=== PATIENT | female | born 1985 | race Caucasian/White ===

== ENCOUNTER 2019-04-03 10:40 | Outpatient (CLI) | payer BC ==
[2019-04-03 11:31] LABS: APPEARANCE,URINE SLIGHTLY-CLOUDY; BILIRUBIN,URINE NEGATIVE (NEGATIVE); COLOR,URINE YELLOW; GLUCOSE, URINE NEGATIVE (NEGATIVE); KETONES,URINE NEGATIVE (NEGATIVE); LEUKOCYTE ESTERASE,URINE NEGATIVE (NEGATIVE); NITRITE,URINE NEGATIVE (NEGATIVE); PROTEIN,URINE NEGATIVE (NEGATIVE); URINE SPECIFIC GRAVITY 1.008; UROBILINOGEN,URINE NEGATIVE mg/dL (<2.0)
[2019-04-03 11:43] LABS: URINE AMPHETAMINES SCREEN NEGATIVE; URINE BARBITURATES SCREEN NEGATIVE; URINE BENZODIAZEPINES SCREEN NEGATIVE; URINE COCAINE SCREEN NEGATIVE; URINE MARIJUANA (THC) SCREEN NEGATIVE; URINE METHADONE SCREEN NEGATIVE; URINE PHENCYCLIDINE SCREEN NEGATIVE
[2019-04-03 11:46] LABS: ABSOLUTE EOSINOPHILS # (AUTO) 0.1 10^3/uL (0.0-0.6); ABSOLUTE LYMPHOCYTES (AUTO) 1.8 10^3/uL (0.5-4.7); ABSOLUTE MONOCYTES (AUTO) 0.8 10^3/uL (0.1-1.4); ABSOLUTE NEUT (AUTO) 8.5 10^3/uL (1.7-8.2); BASOPHILS % (AUTO) 0.2 % (0-2); EOSINOPHILS % (AUTO) 0.6 % (0-6); HEMATOCRIT 39.3 % (36.0-47.0); HEMOGLOBIN 13.4 g/dL (12.0-15.5); LYMPHOCYTES % (AUTO) 16.3 % (13-45); MEAN CORPUSCULAR HEMOGLOBIN 30.8 pg (27.0-33.4); MEAN CORPUSCULAR HGB CONC 34.2 g/dL (32.0-36.0); MEAN CORPUSCULAR VOLUME 90 fl (80-97); MONOCYTES % (AUTO) 7.3 % (3-13); PLATELET COUNT 149 10^3/uL (150-450); RED BLOOD COUNT 4.35 10^6/uL (3.72-5.28); RED CELL DISTRIBUTION WIDTH 13.4 % (11.5-14.0); SEGMENTED NEUTROPHILS % (AUTO) 75.6 % (42-78); TOTAL CELLS COUNTED % (AUTO) 100 %; WHITE BLOOD COUNT 11.2 10^3/uL (4.0-10.5)
[2019-04-03 11:47] LABS: UR PRO/CREAT RATIO RESULT 0.4 mg/mg (0.0-0.2); URINE CREATININE 49.1 mg/dL (16-327)
[2019-04-03 12:09] LABS: ALBUMIN 3.8 g/dL (3.5-5.0); ALKALINE PHOSPHATASE 160 U/L (38-126); ANION GAP 13 (5-19); ASPARTATE AMINO TRANSFERASE 28 U/L (14-36); BILIRUBIN,DIRECT 0.2 mg/dL (0.0-0.4); BILIRUBIN,TOTAL 0.5 mg/dL (0.2-1.3); BLOOD UREA NITROGEN 6 mg/dL (7-20); CALCIUM 9.2 mg/dL (8.4-10.2); CARBON DIOXIDE 16 mmol/L (22-30); CHLORIDE 107 mmol/L (98-107); GLUCOSE 78 mg/dL (75-110); POTASSIUM 3.7 mmol/L (3.6-5.0); TOTAL PROTEIN 6.9 g/dL (6.3-8.2); URIC ACID 3.9 mg/dL (2.5-6.2)
--- NOTE | 2019-04-03 17:33 | Non Stress Test Report ---
Non Stress Test Datetime Report Generated by CPN: 04/03/2019 17:33 DEMOGRAPHIC EGA NST: 38.1 MONITORING Monitor Explained: Monitor Explained; Test Explained; Patient Verbalized Understanding Time on Monitor: 04/03/2019 10:53 Time off Monitor: 04/03/2019 12:26 NST Duration: 93 NST INTERVENTIONS NST Interventions: PO Hydration Physician Notified NST: J Lira CNM BABY A: [id number] BABY A Movement : Present Contraction Frequency : irritability FHR Baseline : 135 Accelerations : 15X15 Decelerations : None Variability : Moderate 6-25bpm NST Review: Meets Criteria for Reactive NST NST Results: Reactive NST REPORT Report Trigger: Send Report
== END 2019-04-03 12:37 | disposition home or self-care (01) ==
LOC: LC 10:40
PROVIDERS: ATTEND Obstetrics & Gynecology
PROC: 4A1HXCZ Monitoring of Products of Conception, Cardiac Rate, External Approach (ICD-10-PCS; principal; 2019-04-03)
DX: O13.3 Gestational [pregnancy-induced] hypertension without significant proteinuria, third trimester (principal); Z3A.38 38 weeks gestation of pregnancy
CPT/HCPCS: 36415; 59025; 80053; 80307; 81001; 82570; 83615; 84156; 84550; 85025

== ENCOUNTER 2019-04-03 18:05 | Inpatient (IN) | payer BC ==
[2019-04-03] MEDS ORDERED: OXYTOCIN/NORMAL SALINE 20 UNIT/1,000 ML RTUINJ IV PRN (18:16)
[2019-04-03] MEDS ORDERED: RINGERS SOLUTION,LACTATED 1,000 ML IV PRN ×2 (18:16→19:00)
[2019-04-03] MEDS ORDERED: RINGERS SOLUTION,LACTATED 300 ML IV ONE (18:16)
[2019-04-03 18:42] LABS: ABSOLUTE BASOPHILS # (AUTO) 0.1 10^3/uL (0.0-0.2); ABSOLUTE LYMPHOCYTES (AUTO) 2.3 10^3/uL (0.5-4.7); ABSOLUTE MONOCYTES (AUTO) 0.9 10^3/uL (0.1-1.4); ABSOLUTE NEUT (AUTO) 9.8 10^3/uL (1.7-8.2); BASOPHILS % (AUTO) 0.4 % (0-2); EOSINOPHILS % (AUTO) 0.4 % (0-6); HEMATOCRIT 38.4 % (36.0-47.0); HEMOGLOBIN 13.4 g/dL (12.0-15.5); LYMPHOCYTES % (AUTO) 17.4 % (13-45); MEAN CORPUSCULAR HEMOGLOBIN 31.1 pg (27.0-33.4); MEAN CORPUSCULAR HGB CONC 34.9 g/dL (32.0-36.0); MEAN CORPUSCULAR VOLUME 89 fl (80-97); MONOCYTES % (AUTO) 6.9 % (3-13); PLATELET COUNT 165 10^3/uL (150-450); RED BLOOD COUNT 4.31 10^6/uL (3.72-5.28); RED CELL DISTRIBUTION WIDTH 13.4 % (11.5-14.0); SEGMENTED NEUTROPHILS % (AUTO) 74.9 % (42-78); TOTAL CELLS COUNTED % (AUTO) 100 %
[2019-04-03] MEDS ORDERED: DINOPROSTONE 10 MG VAGINAL INSERT.SR ONE (18:55)
[2019-04-03] MEDS ORDERED: DINOPROSTONE 10 MG VAGINAL INSERT.SR PV PRN (19:00)
[2019-04-03] MEDS ORDERED: RINGERS SOLUTION,LACTATED 1,000 ML IV ONE (19:00)
[2019-04-03 19:07] LABS: APPEARANCE,URINE SLIGHTLY-CLOUDY; BILIRUBIN,URINE NEGATIVE (NEGATIVE); COLOR,URINE YELLOW; GLUCOSE, URINE NEGATIVE (NEGATIVE); KETONES,URINE 20 mg/dL (NEGATIVE); LEUKOCYTE ESTERASE,URINE NEGATIVE (NEGATIVE); NITRITE,URINE NEGATIVE (NEGATIVE); PROTEIN,URINE 30 mg/dL (NEGATIVE); UROBILINOGEN,URINE NEGATIVE mg/dL (<2.0)
--- NOTE | 2019-04-03 19:15 | Admission Physical ---
Datetime Report Generated by CPN: 04/03/2019 19:15 CURRENT ADMISSION Chief Complaint: Scheduled Induction of Labor Indication for Induction: Chronic Primary/Essential HTN Admit Impression : Term, Intrauterine ; No Active Labor; Intact Membranes; Induction of Labor Admit Plan: Admit to Unit; Initiate Labor Protocol ALLERGIES Medication Allergies: No Medication Allergies: latex (04/03/2019) Latex: Latex Allergies OBSTETRICAL HISTORY EDC: 04/16/2019 00:00 : 1 Para: 0 Term: 0 : 0 SAB: 0 IAB: 0 Ectopic: 0 Livin Cesareans: 0 VBACs: 0 Multiple Births: 0 Gestational Diabetes: No Rh Sensitization: No Incompetent Cervix: No JHOAN: No Infertility: No ART Treatment: No Uterine Anomaly: No IUGR: No Hx Previous C/S: No Macrosomia: No Hx Loss/Stillborn: No PIH: No Hx : No Placenta Previa/Abruption: No Depression/PP Depression: No PTL/PROM: No Post Hemorrhage: No Current Procedures: Ultrasound Obstetrical History Comments: G1- current, Late to [facility], [facility] SEE RECORDS Alcohol: No Marijuana : No Cocaine: No Other Illicit Drugs: No Cigarettes: Never Smoker. [id number] MEDICAL HISTORY Diabetes: No Blood Transfusion: No Pulmonary Disease (Asthma, TB): No Breast Disease: No Hypertension: Yes Logistics Account Manager Surgery: No Heart Disease: No Hosp/Surgery: No Autoimmune Disorder: No Anesthetic Complications: No Kidney Disease: No Abnormal Pap Smear: No Neuro/Epilepsy: No Psychiatric Disorders: No Other Medical Diseases: No Hepatitis/Liver Disease: No Significant Family History: No Varicosities/Phlebitis: No Trauma/Violence : No Thyroid Dysfunction: No INFECTIOUS HISTORY Gonorrhea: No Genital Herpes: No Chlamydia: No Tuberculosis: No Syphilis: No Hepatitis: No HIV/AIDS Exposure: No Rash or Viral Illness: No HPV: No PHYSICAL EXAM General: Normal HEENT: Normal Neurologic: Normal Thyroid: Normal Heart: Normal Lungs: Normal Breast: Normal Back: Normal Abdomen: Normal Genitourinary Exam: Normal Extremities: Normal DTRs: Normal Pelvic Type: Adequate Vital Signs: Reviewed; Within Normal Limits VAGINAL EXAM Dilatation: 1 Effacement: thick Station: -3 Contraction Comments: irregular MEMBRANES Membranes: Intact FETUS A EGA: 38.1 Monitoring: External US FHR- Baseline: 120s Variability: Moderate 6-25bpm Accelerations: 15X15 Decelerations: None FHR Category: Category I Admit Comment: w/an IUP@ 38-1/7 weeks presents to L_D for a scheduled IOL secondary to cHTN. She reports good movement. She is GBS Negative. Cervidil placed at 1900. Her cervix is 1/thick/-3 and posterior. PLANS FOR LABOR AND DELIVERY Labor and Delivery: None Pain Management: Epidural Feeding Preference: Breast Benefit of Breast Feed Discussed: Yes Circumcision: Yes INFORMED CONSENT Signature: with User ID: [email or web address]
[2019-04-03 19:31] LABS: URINE AMPHETAMINES SCREEN NEGATIVE; URINE BARBITURATES SCREEN NEGATIVE; URINE BENZODIAZEPINES SCREEN NEGATIVE; URINE COCAINE SCREEN NEGATIVE; URINE MARIJUANA (THC) SCREEN NEGATIVE; URINE METHADONE SCREEN NEGATIVE; URINE PHENCYCLIDINE SCREEN NEGATIVE
[2019-04-03] MEDS ORDERED: DIPHENHYDRAMINE HCL 50 MG/ML VIAL ONE (22:59)
[2019-04-03] MEDS ORDERED: DIPHENHYDRAMINE HCL 25 MG CAPSULE ONE (22:59)
[2019-04-04] MEDS: DIPHENHYDRAMINE HCL 50 MG CAPSULE PO SCH (01:55)
[2019-04-04] MEDS ORDERED: ONDANSETRON HCL INJ/PF 4 MG/2 ML SDV IV ONE (07:03)
[2019-04-04] MEDS ORDERED: ONDANSETRON HCL INJ/PF 4 MG/2 ML SDV ONE (07:04)
[2019-04-04] MEDS ORDERED: OXYTOCIN 10 UNIT/ML VIAL ONE (07:21)
[2019-04-04] MEDS ORDERED: MISOPROSTOL 0.2 MG TABLET ONE (07:21)
[2019-04-04] MEDS ORDERED: OXYTOCIN/NORMAL SALINE 20 UNIT/1,000 ML RTUINJ ONE (07:22)
[2019-04-04] MEDS ORDERED: LIDOCAINE 1% INJ-PF (10 MG/ML) 30 ML SDV ONE (07:22)
[2019-04-04] MEDS ORDERED: FAMOTIDINE INJ/PF 20 MG/2 ML SDV IV ONE (09:15)
[2019-04-04] MEDS: FAMOTIDINE INJ/PF 20 MG/2 ML SDV IV SCH (09:20)
[2019-04-04] MEDS ORDERED: EPHEDRINE SULFATE INJ 50 MG/1 ML AMPULE ONE (10:12)
[2019-04-04] MEDS ORDERED: FENTANYL/BUPIVACAINE/NS/PF 0 MCG/0 ML RTUINJ EPI ONE (10:13)
[2019-04-04] MEDS ORDERED: BUPIVACAINE HCL 0.25 % INJ/PF (2.5 MG/1 ML) 30 ML VIAL ONE (10:13)
[2019-04-04] MEDS ORDERED: FENTANYL/BUPIVACAINE/NS/PF 300 MCG/150 ML RTUINJ EPI ONE (19:26)
[2019-04-04] MEDS ORDERED: DIPHENHYDRAMINE HCL 25 MG CAPSULE PO PRN (20:48)
[2019-04-04] MEDS ORDERED: ACETAMINOPHEN WITH CODEINE #3 TABLET PO PRN (20:48)
[2019-04-04] MEDS ORDERED: NA PHOS,M-B/NA PHOS,DI-BA (ADULT) 133 ML ENEMA PR PRN (20:48)
[2019-04-04] MEDS ORDERED: ACETAMINOPHEN 650 MG SUPP.RECT PR PRN (20:48)
[2019-04-04] MEDS ORDERED: DIPH/PERTUSS(ACELL)/TETANUS VAC/PF 0.5 ML SYR (>=10YO) IM PRN (20:48)
[2019-04-04] MEDS ORDERED: DIBUCAINE 1% OINTMENT 28 GM TP PRN (20:48)
[2019-04-04] MEDS ORDERED: PSEUDOEPHEDRINE HCL 30 MG TABLET PO PRN (20:48)
[2019-04-04] MEDS ORDERED: PROMETHAZINE HCL INJ 25 MG/1 ML VIAL IV PRN (20:48)
[2019-04-04] MEDS ORDERED: PROMETHAZINE HCL 25 MG TABLET PO PRN (20:48)
[2019-04-04] MEDS ORDERED: MAGNESIUM HYDROXIDE SUSP 30 ML UDCUP PO PRN (20:48)
[2019-04-04] MEDS ORDERED: OXYTOCIN/NORMAL SALINE 20 UNIT/1,000 ML RTUINJ IV PRN (20:48)
[2019-04-04] MEDS ORDERED: MEASLES,MUMPS&RUBELLA VACC/PF 0.5 ML VIAL SUBCUT PRN (20:48)
[2019-04-04] MEDS ORDERED: BENZOCAINE/MENTHOL AEROSOL SPRAY 56 ML TOP PRN (20:48)
[2019-04-04] MEDS ORDERED: PROMETHAZINE HCL 25 MG SUPP.RECT PR PRN (20:48)
[2019-04-04] MEDS ORDERED: ZOLPIDEM TARTRATE 5 MG TABLET PO PRN (20:48)
--- NOTE | 2019-04-04 23:48 | Delivery Summary ---
Del Sum A-C Datetime Report Generated by CPN: 04/04/2019 23:48 DELIVERY PERSONNEL DELIVERY PERSONNEL: [id number] Delivery Doctor:: Malia Evans MD Labor and Delivery Nurse:: Sharona Mcconnell RNflexographic printing machinist Nurse:: MIRTHA Dickerson Nursery Nurse:: Kassie Judd RN Nursery Nurse:: Sunita Brandt RN Manager Respiratory Care/STATION HELPER: Patricia López, ST MATERNAL INFORMATION Delivery Anesthesia: Epidural Medications After Delivery: Pitocin Bolus-Please Comment Meds After Delivery Comment: 20 units in 1000mL NS open bolus Estimated Blood Loss (ml): 200 Delivery QBL: 210 Maternal Complications: None LABOR SUMMARY EDC: 04/16/2019 00:00 No. Babies in Womb: 1 Attempted: No Labor Anesthesia: Epidural LABOR INFORMATION Reason for Induction: Chronic Primary/Essential HTN Onset of Labor: 04/04/2019 09:00 Complete Dilatation: 04/04/2019 16:42 Cervical Ripening Agents: Cervidil Oxytocin: Induction Group B Beta Strep: negative Antibiotics # of Doses: 0 Antibiotics Time of Last Dose: 0 Name of Antibiotic Given: 0 Steroids Given: None Reason Steroids Not Administered: Not Applicable MEMBRANES Membranes Rupture Method: Spontaneous Rupture of Membranes: 04/04/2019 11:55 Length of Rupture (hr): 8.50 Amniotic Fluid Color: Clear Amniotic Fluid Amount: Scant Amniotic Fluid Odor: Normal STAGES OF LABOR Stage 1 hr: 7 Stage 1 min: 42 Stage 2 hr: 3 Stage 2 min: 43 Stage 3 hr: 0 Stage 3 min: 6 Total Time in Labor hr: 11 Total Time in Labor min: 31 VAGINAL DELIVERY Episiotomy: None Laceration #1: Perineal Laceration Extension #1: Third Degree, IIIa (Less than 50 percent ext anal sphincter thickness torn) Laceration Repair: Yes Laceration Repair Note: 2-0 chromic in normal fashion Sponge Count Correct: N/A CSECTION DELIVERY Primary Indication: N/A Secondary Indication: N/A CSection Incision: N/A BABY A INFORMATION Delivery Date/Time: 04/04/2019 20:25 Method of Delivery: Vaginal Nurse Controlled Delivery: No Born in Route : No : N/A Forceps: N/A Vacuum Extraction: N/A Shoulder Dystocia : No PRESENTATION/POSITION BABY A Presentation: Cephalic Cephalic Presentation: Vertex Vertex Position: Right Occipital Anterior Breech Presentation: N/A PLACENTA INFORMATION BABY A Placenta Delivery Time : 04/04/2019 20:31 Placenta Method of Delivery: Spontaneous Placenta Status: Delivered SCORES BABY A Heart Rate 1 min: >100 bpm Resp Effort 1 min: Absent Reflex Irritability 1 min: No Response Muscle Tone 1 min: Flaccid Color 1 min: Blue/Pale Resuscitation Effort 1 min: Tactile Stimulation SCORE 1 MIN: 2 Heart Rate 5 min: >100 bpm Resp Effort 5 min: Good Cry Reflex Irritability 5 min: Cough or Sneeze or Pulls Away Muscle Tone 5 min: Some Flexion of Extremities Color 5 min: Body Gamerco, Extremities Blue SCORE 5 MIN: 8 INFORMATION BABY A Gestational Age at Delivery: 38.2 Gestational Status: Early Term- 37- 38.6 Weeks Infant Outcome : Liveborn Condition : Fair Sex: Male IDENTIFICATION BABY A Verification Date/Time: 04/04/2019 20:46 ID Band Number: [id number] Infant RN Verifying Infant: rn sydnismann and rn judd WEIGHT/LENGTH BABY A Birthweight (gm): 2805 Weight (lb): 6 Infant Weight (oz): 3 Length (in): 19.50 Infant Length (cm): 49.53 CORD INFORMATION BABY A No. Cord Vessels: 3 Nuchal Cord : Around Neck x1, Loose Cord Blood Taken: Yes-For Storage (Mom's Blood type +) Infant Suction: Mouth; Nose ASSESSMENT BABY A Skin to Skin: Yes RESUSCITATION BABY A Resuscitation Effort: Tactile Stimulation; Oxygen; PPV/NCPAP BABY B INFORMATION : N/A ASSESSMENT BABY C Skin to Skin Time (min): 2 SIGNATURES Signature: with User ID: [email or web address]
[2019-04-05] MEDS: IBUPROFEN 800 MG TABLET PO SCH ×4 (01:17→23:00)
[2019-04-05] MEDS: FAMOTIDINE 20 MG TABLET PO SCH ×3 (01:18→23:00)
[2019-04-05] MEDS: FAMOTIDINE INJ/PF 20 MG/2 ML SDV IV SCH ×3 (03:28→21:39)
[2019-04-05] MEDS: ACETAMINOPHEN WITH CODEINE #3 TABLET PO PRN (05:49)
[2019-04-05 07:41] LABS: HEMATOCRIT 34.5 % (36.0-47.0); HEMOGLOBIN 11.7 g/dL (12.0-15.5); MEAN CORPUSCULAR HEMOGLOBIN 30.8 pg (27.0-33.4); MEAN CORPUSCULAR VOLUME 91 fl (80-97); PLATELET COUNT 164 10^3/uL (150-450); RED BLOOD COUNT 3.81 10^6/uL (3.72-5.28); RED CELL DISTRIBUTION WIDTH 13.6 % (11.5-14.0); WHITE BLOOD COUNT 18.9 10^3/uL (4.0-10.5)
[2019-04-05] MEDS: DIPHENHYDRAMINE HCL 50 MG CAPSULE PO SCH ×2 (09:13→21:38)
[2019-04-05] MEDS: FERROUS SULFATE 325 MG TABLET PO SCH ×2 (09:30→18:07)
[2019-04-05] MEDS: SENNOSIDES/DOCUSATE 8.6-50 MG 1 EACH TABLET PO SCH (09:31)
[2019-04-05] MEDS: DOCUSATE SODIUM 100 MG CAPSULE PO SCH ×2 (09:31→18:07)
[2019-04-05] MEDS: PRENATAL VITAMIN W DHA CAPSULE PO SCH (09:31)
--- NOTE | 2019-04-05 10:16 | PDOC PROGRESS REPORT ---
Subjective-OB Progress Note for:: 04/05/19 - PP day #1, pt sitting on the side of the bed attempting to void, s/p 3rd degree laceration and states she pushed for almost 4 hours. plans to breastfeed Physical Exam (OB) Vital Signs: Temp Pulse Resp BP Pulse Ox 98.1 F 82 19 123/79 99 04/05/19 07:42 04/05/19 07:42 04/05/19 07:42 04/05/19 07:42 04/05/19 07:42 Intake & Output 04/04/19 04/05/19 04/06/19 06:59 06:59 06:59 Intake Total 1000 Balance 1000 Weight 83.915 kg - General General Appearance: Appears well, Alert - PIH/Pre-Eclampsia Clonus: Negative Headache: Absent Epigastric Pain: No Visual Changes: No - Lochia Lochia Amount: Small 10-25 ml Lochia Color: Rubra/Red - Abdomen Description: Soft Hernia Present: No Fundal Description: Firm, Midline Fundal Height: u/u - u/2 - Respiratory Respiratory Status: No respiratory distress - Abdominal Distension: No distension - Genitourinary Genitourinary Note: attempting to void - Extremities Upper extremity: Normal inspection Lower extremities: Normal inspection - Neurological Cognition: Normal Orientation: AAOx4 - Psychological Associated symptoms: Normal affect, Tearful - Skin Skin Temperature: Warm Skin Moisture: Dry Objective-Diagnostic Laboratory: 04/05/19 07:20 04/05/19 07:20 WBC 18.9 H RBC 3.81 Hgb 11.7 L Hct 34.5 L MCV 91 MCH 30.8 MCHC 34.0 RDW 13.6 Plt Count 164 Assessment and Plan(PN) - Assessment and Plan (1) Third degree laceration of perineum, type 3a Is this a current diagnosis for this admission?: Yes (2) Chronic hypertension Is this a current diagnosis for this admission?: Yes (3) (normal spontaneous vaginal delivery) Is this a current diagnosis for this admission?: Yes Plan:: pt may need I&O cath if unable to void. Routine PP orders, Ambulation encouraged - Time Spent with Patient Time with patient: Less than 15 minutes Medications reviewed and adjusted accordingly: Yes - Disposition Anticipated Discharge: Home Within: within 24 hours
[2019-04-05] MEDS ORDERED: LIDOCAINE 2% JELLY 5 ML TUBE ONE (11:59)
[2019-04-05] MEDS ORDERED: LIDOCAINE 2% JELLY 5 ML TUBE TOP ONE ×2 (13:00→18:00)
[2019-04-05] MEDS: NITROFURANTOIN MONOHYD/M-CRYST 100 MG CAPSULE PO SCH (18:53)
[2019-04-06] MEDS: GLYCERIN/WITCH HAZEL LEAF 1 EACH MED..WIPE TP PRN (04:37)
[2019-04-06] MEDS: IBUPROFEN 800 MG TABLET PO SCH ×3 (05:55→21:54)
[2019-04-06] MEDS: NITROFURANTOIN MONOHYD/M-CRYST 100 MG CAPSULE PO SCH ×2 (09:50→17:33)
[2019-04-06] MEDS: FAMOTIDINE 20 MG TABLET PO SCH ×2 (09:50→21:54)
[2019-04-06] MEDS: PRENATAL VITAMIN W DHA CAPSULE PO SCH (09:51)
[2019-04-06] MEDS: FERROUS SULFATE 325 MG TABLET PO SCH ×2 (09:51→17:33)
[2019-04-06] MEDS: DOCUSATE SODIUM 100 MG CAPSULE PO SCH ×2 (09:51→17:33)
[2019-04-06] MEDS: SENNOSIDES/DOCUSATE 8.6-50 MG 1 EACH TABLET PO SCH (09:51)
[2019-04-06] MEDS: FAMOTIDINE INJ/PF 20 MG/2 ML SDV IV SCH ×2 (10:16→21:53)
--- NOTE | 2019-04-06 10:25 | PDOC PROGRESS REPORT ---
Subjective-OB Progress Note for:: 04/06/19 - PP Day #2, pt doing much better this morning. Has wood cath in place still due to having difficulty voiding yesterday. A+, Rubella Immnue, 3rd degree laceration. Physical Exam (OB) Vital Signs: Temp Pulse Resp BP Pulse Ox 98.0 F 106 H 16 131/84 H 100 04/06/19 07:05 04/06/19 07:05 04/06/19 07:05 04/06/19 07:05 04/06/19 07:05 Intake & Output 04/05/19 04/06/19 04/07/19 06:59 06:59 06:59 Intake Total 1000 Output Total 2200 Balance -1200 - General General Appearance: Appears well, Alert In distress: None - PIH/Pre-Eclampsia Clonus: Negative Headache: Absent Epigastric Pain: No Visual Changes: No - Lochia Lochia Amount: Scant < 10 ml Lochia Color: Rubra/Red - Abdomen Description: Tender, Soft, Round Hernia Present: No Fundal Description: Firm, Midline Fundal Height: u/u - u/2 - Respiratory Respiratory Status: No respiratory distress - Abdominal Distension: No distension - Genitourinary Genitourinary Note: wood cath, clear barak urine to gravity - Extremities Upper extremity: Normal inspection Lower extremities: Edema - Neurological Cognition: Normal Orientation: AAOx4 - Psychological Associated symptoms: Normal affect, Normal mood Objective-Diagnostic Laboratory: 04/05/19 07:20 Assessment and Plan(PN) - Assessment and Plan (1) Third degree laceration of perineum, type 3a Is this a current diagnosis for this admission?: Yes (2) Chronic hypertension Is this a current diagnosis for this admission?: Yes (3) (normal spontaneous vaginal delivery) Is this a current diagnosis for this admission?: Yes - Time Spent with Patient Time with patient: 15-25 minutes Medications reviewed and adjusted accordingly: Yes - Disposition Anticipated Discharge: Home Within: within 24 hours - Will leave wood cath in today, possibly d/c either tonight or in the morning. Plan for discharge tomorrow.
[2019-04-06] MEDS: DIPHENHYDRAMINE HCL 50 MG CAPSULE PO SCH (21:52)
[2019-04-06] MEDS: ACETAMINOPHEN WITH CODEINE #3 TABLET PO PRN (21:59)
[2019-04-07] MEDS: GLYCERIN/WITCH HAZEL LEAF 1 EACH MED..WIPE TP PRN (05:33)
[2019-04-07] MEDS: IBUPROFEN 800 MG TABLET PO SCH ×3 (05:34→21:22)
[2019-04-07] MEDS: SENNOSIDES/DOCUSATE 8.6-50 MG 1 EACH TABLET PO SCH (10:07)
[2019-04-07] MEDS: DOCUSATE SODIUM 100 MG CAPSULE PO SCH ×2 (10:07→17:31)
[2019-04-07] MEDS: NITROFURANTOIN MONOHYD/M-CRYST 100 MG CAPSULE PO SCH ×2 (10:07→17:31)
[2019-04-07] MEDS: FERROUS SULFATE 325 MG TABLET PO SCH ×2 (10:07→17:31)
[2019-04-07] MEDS: PRENATAL VITAMIN W DHA CAPSULE PO SCH (10:07)
[2019-04-07] MEDS: FAMOTIDINE INJ/PF 20 MG/2 ML SDV IV SCH ×2 (10:10→21:24)
[2019-04-07] MEDS: FAMOTIDINE 20 MG TABLET PO SCH ×2 (10:10→21:24)
--- NOTE | 2019-04-07 10:32 | PDOC PROGRESS REPORT ---
Subjective-OB Progress Note for:: 04/07/19 Subjective: pt without complaints Physical Exam (OB) Vital Signs: Temp Pulse Resp BP Pulse Ox 97.6 F 80 16 139/84 H 99 04/07/19 07:20 04/07/19 07:20 04/07/19 07:20 04/07/19 07:20 04/07/19 07:20 Intake & Output 04/06/19 04/07/19 04/08/19 06:59 06:59 06:59 Intake Total 1000 360 Output Total 5500 2750 Balance -4500 -2390 - General General Appearance: Appears well - PIH/Pre-Eclampsia Clonus: Negative Headache: Absent Epigastric Pain: No Visual Changes: No - Lochia Lochia Amount: Scant < 10 ml Lochia Color: Rubra/Red - Abdomen Description: Soft, Round Hernia Present: No Bowel Sounds: Normoactive Flatus Presence: Present Fundal Description: Firm, Midline Fundal Height: u/u - u/2 Objective-Diagnostic Laboratory: 04/05/19 07:20 Assessment and Plan(PN) - Assessment and Plan (1) Chronic hypertension Is this a current diagnosis for this admission?: Yes (2) (normal spontaneous vaginal delivery) Is this a current diagnosis for this admission?: Yes (3) Third degree laceration of perineum, type 3a Is this a current diagnosis for this admission?: Yes (4) Urinary retention with incomplete bladder emptying Is this a current diagnosis for this admission?: Yes - Time Spent with Patient Time with patient: Less than 15 minutes Medications reviewed and adjusted accordingly: Yes - Disposition Anticipated Discharge: Home Within: within 24 hours - d/c wood at 5 pm fter pt voids and residuals are less than 100cc pt will be readt to dicharge
[2019-04-07] MEDS: DIPHENHYDRAMINE HCL 50 MG CAPSULE PO SCH (21:21)
[2019-04-08] MEDS: IBUPROFEN 800 MG TABLET PO SCH ×2 (05:48→14:41)
[2019-04-08] MEDS: GLYCERIN/WITCH HAZEL LEAF 1 EACH MED..WIPE TP PRN (08:02)
[2019-04-08] MEDS: SENNOSIDES/DOCUSATE 8.6-50 MG 1 EACH TABLET PO SCH (10:04)
[2019-04-08] MEDS: FAMOTIDINE 20 MG TABLET PO SCH (10:04)
[2019-04-08] MEDS: NITROFURANTOIN MONOHYD/M-CRYST 100 MG CAPSULE PO SCH ×2 (10:04→18:13)
[2019-04-08] MEDS: FERROUS SULFATE 325 MG TABLET PO SCH ×2 (10:04→18:13)
[2019-04-08] MEDS: PRENATAL VITAMIN W DHA CAPSULE PO SCH (10:04)
[2019-04-08] MEDS: DOCUSATE SODIUM 100 MG CAPSULE PO SCH ×2 (10:04→18:13)
[2019-04-08] MEDS: FAMOTIDINE INJ/PF 20 MG/2 ML SDV IV SCH (10:05)
--- NOTE | 2019-04-08 10:34 | PDOC PROGRESS REPORT ---
Subjective-OB Progress Note for:: 04/08/19 Subjective: Pt was unable to void last night after second Straight cath, so they left the FC in to BSD overnight. She has clear yellow urine, reports perineal area is feeling much better today. Reports light bleeding. She has been using sitz bath regularly, mother is RN and is as bedside. PO hydration is adequate. Physical Exam (OB) Vital Signs: Temp Pulse Resp BP Pulse Ox 97.6 F 84 16 143/80 H 96 04/08/19 07:44 04/08/19 07:44 04/08/19 07:44 04/08/19 07:44 04/08/19 07:44 Intake & Output 04/07/19 04/08/19 04/09/19 06:59 06:59 06:59 Intake Total 360 3690 300 Output Total 2750 3850 Balance -2390 -160 300 - Lochia Lochia Amount: Scant < 10 ml Lochia Color: Serosa/Brown - Abdomen Description: Soft, Flat Hernia Present: No Fundal Description: Firm, Midline Fundal Height: u/u - u/2 Objective-Diagnostic Laboratory: 04/05/19 07:20 Assessment and Plan(PN) - Assessment and Plan (1) Chronic hypertension Is this a current diagnosis for this admission?: Yes (2) Group beta Strep positive Is this a current diagnosis for this admission?: Yes (3) (normal spontaneous vaginal delivery) Is this a current diagnosis for this admission?: Yes (4) Precipitous delivery Is this a current diagnosis for this admission?: Yes (5) Third degree laceration of perineum, type 3a Is this a current diagnosis for this admission?: Yes (6) Urinary retention with incomplete bladder emptying Is this a current diagnosis for this admission?: Yes Plan:: we will clamp FC and unclamp at urge to void, then reclamp x1 and then remove when she has the urge to void. POC discussed with Dr. Jacob. - Time Spent with Patient Time with patient: Less than 15 minutes Medications reviewed and adjusted accordingly: Yes - Disposition Anticipated Discharge: Home Within: within 24 hours, within 48 hours
--- NOTE | 2019-04-08 14:40 | PDOC DISCHARGE SUMMARY ---
Impression - Admit/DC Date/PCP Admission Date/Primary Care Provider: 04/03/19 18:05 KINGS BOLAÑOS MD Discharge Date: 04/08/19 - Discharge Diagnosis (1) Chronic hypertension Is this a current diagnosis for this admission?: Yes (2) Group beta Strep positive Is this a current diagnosis for this admission?: Yes (3) (normal spontaneous vaginal delivery) Is this a current diagnosis for this admission?: Yes (4) Precipitous delivery Is this a current diagnosis for this admission?: Yes (5) Third degree laceration of perineum, type 3a Is this a current diagnosis for this admission?: Yes (6) Urinary retention with incomplete bladder emptying Is this a current diagnosis for this admission?: Yes - Additional Information Resuscitation Status: Full Code Discharge Diet: Regular Discharge Activity: Balance Activity w/Rest, Pelvic Rest [facility] Prescriptions: Ibuprofen [Motrin 800 mg Tablet] 800 mg PO Q8HP PRN #60 tablet PRN Reason: Nitrofurantoin Monohyd/M-Cryst [Macrobid 100 mg Capsule] 100 mg PO BID #14 c apsule Home Medications: Ibuprofen [Motrin 800 mg Tablet] 800 mg PO Q8HP PRN #60 tablet 04/08/19 Nitrofurantoin Monohyd/M-Cryst [Macrobid 100 mg Capsule] 100 mg PO BID #14 capsule 04/08/19 Results Laboratory Results: WBC 18.9 10^3/uL (4.0-10.5) H 04/05/19 07:20 RBC 3.81 10^6/uL (3.72-5.28) 04/05/19 07:20 Hgb 11.7 g/dL (12.0-15.5) L 04/05/19 07:20 Hct 34.5 % (36.0-47.0) L 04/05/19 07:20 MCV 91 fl (80-97) 04/05/19 07:20 MCH 30.8 pg (27.0-33.4) 04/05/19 07:20 MCHC 34.0 g/dL (32.0-36.0) 04/05/19 07:20 RDW 13.6 % (11.5-14.0) 04/05/19 07:20 Plt Count 164 10^3/uL (150-450) 04/05/19 07:20 Lymph % (Auto) 17.4 % (13-45) 04/03/19 18:30 [place] % (Auto) 6.9 % (3-13) 04/03/19 18:30 Eos % (Auto) 0.4 % (0-6) 04/03/19 18:30 Baso % (Auto) 0.4 % (0-2) 04/03/19 18:30 Absolute Neuts (auto) 9.8 10^3/uL (1.7-8.2) H 04/03/19 18:30 Absolute Lymphs (auto) 2.3 10^3/uL (0.5-4.7) 04/03/19 18:30 Absolute Monos (auto) 0.9 10^3/uL (0.1-1.4) 04/03/19 18:30 Absolute Eos (auto) 0.0 10^3/uL (0.0-0.6) 04/03/19 18:30 Absolute Basos (auto) 0.1 10^3/uL (0.0-0.2) 04/03/19 18:30 Seg Neutrophils % 74.9 % (42-78) 04/03/19 18:30 Urine Color YELLOW 04/03/19 18:17 Urine Appearance SLIGHTLY-CLOUDY 04/03/19 18:17 Urine pH 6.0 (5.0-9.0) 04/03/19 18:17 Ur Specific [place] 1.020 04/03/19 18:17 Urine Protein 30 mg/dL (NEGATIVE) H 04/03/19 18:17 Urine Glucose (UA) NEGATIVE mg/dL (NEGATIVE) 04/03/19 18:17 Urine Ketones 20 mg/dL (NEGATIVE) H 04/03/19 18:17 Urine Blood NEGATIVE (NEGATIVE) 04/03/19 18:17 Urine Nitrite NEGATIVE (NEGATIVE) 04/03/19 18:17 Urine Bilirubin NEGATIVE (NEGATIVE) 04/03/19 18:17 Urine Urobilinogen NEGATIVE mg/dL (<2.0) 04/03/19 18:17 Ur Leukocyte Esterase NEGATIVE (NEGATIVE) 04/03/19 18:17 Urine Ascorbic Acid 20 (NEGATIVE) H 04/03/19 18:17 Urine Opiates Screen NEGATIVE 04/03/19 18:17 Urine Methadone Screen NEGATIVE 04/03/19 18:17 Ur Barbiturates Screen NEGATIVE 04/03/19 18:17 Ur Phencyclidine Scrn NEGATIVE 04/03/19 18:17 Ur Amphetamines Screen NEGATIVE 04/03/19 18:17 U Benzodiazepines Scrn NEGATIVE 04/03/19 18:17 Urine Cocaine Screen NEGATIVE 04/03/19 18:17 U Marijuana (THC) Screen NEGATIVE 04/03/19 18:17 RPR NONREACTIVE (NONREACTIVE) 04/03/19 18:30 Blood Type A POSITIVE 04/03/19 18:30 Antibody Screen NEGATIVE 04/03/19 18:30
[2019-04-08 19:25] VITALS: BP 135/83
== END 2019-04-08 20:11 | disposition home or self-care (01) | DRG 807 ==
LOC: LR 18:05 → 2S 04-05 01:04
PROVIDERS: ADMIT Obstetrics & Gynecology; ATTEND Obstetrics & Gynecology
PROC: 10E0XZZ Delivery of Products of Conception, External Approach (ICD-10-PCS; principal; 2019-04-04)
PROC: 0KQM0ZZ Repair Perineum Muscle, Open Approach (ICD-10-PCS; 2019-04-04)
PROC: 3E033VJ Introduction of Other Hormone into Peripheral Vein, Percutaneous Approach (ICD-10-PCS; 2019-04-04)
DX: O16.4 Unspecified maternal hypertension, complicating childbirth (principal); Z37.0 Single live birth; O70.21 Third degree perineal laceration during delivery, IIIa; O69.81X0 Labor and delivery complicated by cord around neck, without compression, not applicable or unspecified; O99.824 Streptococcus B carrier state complicating childbirth; O62.3 Precipitate labor; R33.9 Retention of urine, unspecified; Z3A.38 38 weeks gestation of pregnancy; Z91.040 Latex allergy status
CPT/HCPCS: 36415; 80307; 81005; 85027; 86592; 86850; 86900; 86901; J1200; J2405; J2590; J3010; J3490; J8499; S0028